=== PATIENT | male | born 1990 | race Hispanic/Latino ===

== ENCOUNTER 2017-07-03 17:28 | Emergency (ER) | payer BC ==
--- NOTE | 2017-07-03 19:04 | ER ---
Nurse's Notes [facility] Name: Juancarlos Oneal Age: 26 yrs Sex: Male : 1990 Arrival Date: 07/03/2017 Time: 17:33 Bed 14 Private MD: Diagnosis: Acute pharyngitis Presentation: 07/03 17:35 Presenting complaint: Patient states: 2 weeks ago, i have been diagnosed with hj bronchitis, finished with Rx antibiotics; now the cough is back and i have this pain on the middle of my chest; reports SOB; reports on and off fever and cold sweats;. Transition of care: patient was not received from another setting of care. Onset of symptoms was July 03, 2017. Care prior to arrival: None. 17:35 Method Of Arrival: Ambulatory 17:35 Acuity: SUNIL 3 hj Triage Assessment: 17:37 General: Appears in no apparent distress. uncomfortable, Behavior is calm, cooperative, hj appropriate for age. Pain: Complains of pain in chest. Cardiovascular: Capillary refill < 3 seconds Patient's skin is warm and dry. Historical: - Allergies: 17:37 No Known Allergies; hj - Home Meds: 17:37 None [Active]; hj - PMHx: 17:37 Asthma; hj - PSHx: 17:37 None; hj - Immunization history:: Adult Immunizations up to date. - Social history:: Smoking status: Patient/guardian denies using tobacco. Screenin:03 Abuse screen: Denies threats or abuse. Nutritional screening: No deficits noted. tw2 Tuberculosis screening: No symptoms or risk factors identified. Fall Risk None identified. Assessment: 17:37 Pain: Pain does not radiate. Pain began a week ago. hj 18:00 General: Appears in no apparent distress. obese, Behavior is calm, cooperative, tw2 appropriate for age. Pain: Complains of pain in chest Pain does not radiate. Also complains of shortness of breath, cough. Neuro: Level of Consciousness is awake, alert, obeys commands, Oriented to person, place, time, situation. Cardiovascular: Heart tones S1 S2 Capillary refill < 3 seconds Patient's skin is warm and dry. Respiratory: Reports shortness of breath cough that is non-productive, dry, Airway is patent Respiratory effort is even, unlabored, Respiratory pattern is regular, symmetrical, Breath sounds are clear bilaterally. GI: Abdomen is round non-distended, Bowel sounds present X 4 quads. GI: No signs and/or symptoms were reported involving the gastrointestinal system. GI: No signs and/or symptoms were reported involving the gastrointestinal system. : No signs and/or symptoms were reported regarding the genitourinary system. EENT: Reports nasal congestion nasal discharge family member in house has Flu A. Derm: No signs and/or symptoms reported regarding the dermatologic system. Musculoskeletal: Circulation, motion, and sensation intact. Range of motion: intact in all extremities. 19:25 Reassessment: Patient appears in no apparent distress at this time. Patient and/or kb1 family updated on plan of care and expected duration. Pain level reassessed. Patient is alert, oriented x 3, equal unlabored respirations, skin warm/dry/pink. Vital Signs: 17:38 BP 110 / 46; Pulse 85; Resp 20; Temp 97.8(TE); Pulse Ox 95% on R/A; Weight 158.76 kg; Height 5 ft. 7 in. (170.18 cm); Pain 6/10; 18:02 BP 129 / 84; Pulse 76; Resp 17; Pulse Ox 97% on R/A; tw2 18:51 BP 125 / 86; Pulse 103; Resp 20; Pulse Ox 97% on R/A; mh5 19:26 BP 128 / 92; Pulse 82; Resp 18; Pulse Ox 97% ; kb1 17:38 Body Mass Index 54.82 (158.76 kg, 170.18 cm) ED Course: 17:33 Patient arrived in ED. mr 17:36 Triage completed. hj 17:37 Arm band placed on right wrist. hj 17:37 Patient maintains SpO2 saturation greater than 95% on room air. hj 18:00 Vanesa Arguello, ANDRES is Primary Nurse. tw2 18:01 Abram Haider NP is PHCP. pm1 18:01 Angel Carrasquillo MD is Attending Physician. pm1 18:02 Bed in low position. Call light in reach. monitoring manager on. Pulse ox on. NIBP on. tw2 18:03 No provider procedures requiring assistance completed. tw2 18:23 Flu Sent. tw2 18:23 Strep Sent. tw2 19:10 Report given to ANDRES Sim. tw2 19:14 Awaiting: awaiting 15 min abx watch prior to discharge. tw2 19:15 Primary Nurse role handed off by Vanesa Arguello RN tw2 19:25 Chiquis Cheema, RN is Primary Nurse. kb1 19:54 Patient did not have IV access during this emergency room visit. kb1 Administered Medications: 19:10 Drug: Rocephin (cefTRIAXone) 1 grams Route: IM; Site: left deltoid; tw2 19:53 Follow up: Response: No adverse reaction kb1 Outcome: 19:04 Discharge ordered by MD. pm1 19:53 Discharged to home ambulatory. kb1 19:53 Condition: stable 19:53 Discharge instructions given to patient, Instructed on discharge instructions, follow up and referral plans. medication usage, Demonstrated understanding of instructions, follow-up care, medications, Prescriptions given X 2. 19:54 Patient left the ED. kb1 Signatures: Ignacia Bhatia Henry RN RN hj Abram Haider NP NEWS LIBRARY DIRECTOR pm1 Vanesa Arguello RN RN [facility] Ignacia Rosas [facility] Chiquis Cheema RN RN kb1 Corrections: (The following items were deleted from the chart) 17:40 17:38 Pulse 85bpm; Resp 20bpm; Pulse Ox 95% RA; Temp 97.8F Temporal; 158.76 kg; Height hj 5 ft. 7 in.; BMI: 54.8; Pain 6/10; hj
--- NOTE | 2017-07-03 19:04 | EDPHYS ---
Physician Documentation [facility] Name: Juancarlos Oneal Age: 26 yrs Sex: Male : 1990 Arrival Date: 07/03/2017 Time: 17:33 Bed 14 Private MD: ED Physician Angel Carrasquillo HPI: 07/03 19:15 This 26 yrs old Male presents to ER via Ambulatory with complaints of Cough, pm1 Chest Pain. 19:15 The patient or guardian reports cough, with no sputum. Onset: The symptoms/episode pm1 began/occurred 3 day(s) ago. Severity of symptoms: in the emergency department the symptoms are actually worse. Modifying factors: The symptoms are alleviated by nothing, the symptoms are aggravated by nothing. Associated signs and symptoms: Pertinent positives: chest pain, with cough, sore throat, Pertinent negatives: diarrhea, fever, rhinorrhea. 19:15 The patient has been recently seen by a physician: 2 week(s) ago, [facility]. Patient pm1 with onset of symptoms three days ago with sore throat. Historical: - Allergies: 17:37 No Known Allergies; hj - Home Meds: 17:37 None [Active]; hj - PMHx: 17:37 Asthma; hj - PSHx: 17:37 None; hj - Immunization history:: Adult Immunizations up to date. - Social history:: Smoking status: Patient/guardian denies using tobacco. ROS: 19:15 Constitutional: Negative for fever, chills, and weight loss, Eyes: Negative for injury, pm1 pain, redness, and discharge. 19:15 Neck: Negative for injury, pain, and swelling, Cardiovascular: Negative for chest pain, palpitations, and edema. 19:15 Abdomen/GI: Negative for abdominal pain, nausea, vomiting, diarrhea, and constipation, Back: Negative for injury and pain, : Negative for injury, bleeding, discharge, and swelling, MS/Extremity: Negative for injury and deformity, Skin: Negative for injury, rash, and discoloration, Neuro: Negative for headache, weakness, numbness, tingling, and seizure. 19:15 ENT: Positive for sore throat, Negative for ear pain, rhinorrhea, difficulty swallowing, difficulty handling secretions, hoarseness. 19:15 Respiratory: Positive for cough, Negative for shortness of breath, sputum production, wheezing. Exam: 19:15 Constitutional: This is a well developed, well nourished patient who is awake, alert, pm1 and in no acute distress. Head/Face: Normocephalic, atraumatic. Eyes: Pupils equal round and reactive to light, extra-ocular motions intact. Lids and lashes normal. Conjunctiva and sclera are non-icteric and not injected. Cornea within normal limits. Periorbital areas with no swelling, redness, or edema. 19:15 Neck: Trachea midline, no thyromegaly or masses palpated, and no cervical lymphadenopathy. Supple, full range of motion without nuchal rigidity, or vertebral point tenderness. No Meningismus. Chest/axilla: Normal chest wall appearance and motion. Nontender with no deformity. No lesions are appreciated. Cardiovascular: Regular rate and rhythm with a normal S1 and S2. No gallops, murmurs, or rubs. Normal PMI, no JVD. No pulse deficits. Respiratory: Lungs have equal breath sounds bilaterally, clear to auscultation and percussion. No rales, rhonchi or wheezes noted. No increased work of breathing, no retractions or nasal flaring. Abdomen/GI: Soft, non-tender, with normal bowel sounds. No distension or tympany. No guarding or rebound. No evidence of tenderness throughout. Back: No spinal tenderness. No costovertebral tenderness. Full range of motion. Skin: Warm, dry with normal turgor. Normal color with no rashes, no lesions, and no evidence of cellulitis. MS/ Extremity: Pulses equal, no cyanosis. Neurovascular intact. Full, normal range of motion. 19:15 ENT: External ear(s): are unremarkable, Ear canal(s): are normal, TM's: are normal, Nose: is normal, Mouth: is normal, Posterior pharynx: Airway: normal, no evidence of obstruction, patent, Tonsils: bilaterally enlarged, with erythema, with exudate, no ulcerations, peritonsillar mass, is not appreciated, pooling of secretions, is not appreciated. 19:15 Neuro: Orientation: is normal, Motor: is normal, moves all fours, strength is normal, strength is 5/5 in all extremities, Gait: is steady, at a normal pace, without difficulty. Vital Signs: 17:38 BP 110 / 46; Pulse 85; Resp 20; Temp 97.8(TE); Pulse Ox 95% on R/A; Weight 158.76 kg; hj Height 5 ft. 7 in. (170.18 cm); Pain 6/10; 18:02 BP 129 / 84; Pulse 76; Resp 17; Pulse Ox 97% on R/A; tw2 18:51 BP 125 / 86; Pulse 103; Resp 20; Pulse Ox 97% on R/A; mh5 19:26 BP 128 / 92; Pulse 82; Resp 18; Pulse Ox 97% ; kb1 17:38 Body Mass Index 54.82 (158.76 kg, 170.18 cm) hj MDM: 18:01 Patient medically screened. pm1 19:03 Data reviewed: vital signs. Data interpreted: Pulse oximetry: on room air is 97 %. pm1 Interpretation: normal. Counseling: I had a detailed discussion with the patient and/or guardian regarding: the historical points, exam findings, and any diagnostic results supporting the discharge/admit diagnosis, lab results, the need for outpatient follow up, to return to the emergency department if symptoms worsen or persist or if there are any questions or concerns that arise at home. 07/03 18:11 Order name: Flu; Complete Time: 19:01 pm1 07/03 18:11 Order name: Strep; Complete Time: 19:01 pm1 07/03 18:37 Order name: Throat Culture EDMS Administered Medications: 19:10 Drug: Rocephin (cefTRIAXone) 1 grams Route: IM; Site: left deltoid; tw2 19:53 Follow up: Response: No adverse reaction kb1 Disposition: 07/03/17 19:04 Discharged to Home. Impression: Acute pharyngitis. - Condition is Stable. - Discharge Instructions: Pharyngitis. - Prescriptions for Zithromax Z- Fly 250 mg Oral Tablet - take 1 tablet by ORAL route as directed for 5 days Day 1 - take two (2) tablets one time. Day 2, 3, 4 , 5 take one (1) tablet once daily.; 6 tablet. Guaifenesin AC 10- 100 mg/5 mL Oral Liquid - take 10 milliliter by ORAL route every 4 hours As needed; 240 milliliter. - Medication Reconciliation Form, Thank You Letter, Antibiotic Education, Work release form form. - Follow up: Emergency Department; When: As needed; Reason: Worsening of condition. Follow up: Private Physician; When: 2 - 3 days; Reason: Recheck today's complaints, Continuance of care, Re-evaluation by your physician. - Problem is new. - Symptoms have improved. Addendum: 07/06/2017 07:29 Co-signature as Attending Physician, Angel Carrasquillo MD. g s Signatures: Dispatcher [employer] EDMS Jarrod Pimentel, RN RN hj Abarm Haider NP STATUE CARVER pm1 Vanesa Arguello RN RN tw2 Angel Carrasquillo MD MD Chiquis Cheema, RN RN kb1
[2017-07-03] MEDS ORDERED: CEFTRIAXONE 1000 MG/VIAL ONE (19:27)
[2017-07-03 19:59] VITALS: TEMP 97.8
[2017-07-03 20:00] VITALS: O2SAT 97
[2017-07-03 20:02] VITALS: BP 128/92
== END 2017-07-03 19:54 | disposition home or self-care (01) ==
LOC: ER 17:28
DX: J02.9 Acute pharyngitis, unspecified (principal)
CPT/HCPCS: 87070; 87081; 87804; 96372; 99285

== ENCOUNTER 2018-01-09 09:31 | Emergency (ER) | payer BC ==
--- NOTE | 2018-01-09 10:33 | ER ---
Nurse's Notes [facility] Name: Juancarlos Oneal Age: 27 yrs Sex: Male : 1990 Arrival Date: 01/09/2018 Time: 09:33 Bed 12 Private MD: Richard Valencia E Diagnosis: Insect bite (nonvenomous) of forearm Presentation: 01/09 09:42 Presenting complaint: Patient states: redness to R forearm x 2 days. Pt believes it may ss be a spider bite. Transition of care: patient was not received from another setting of care. Onset of symptoms was January 07, 2018. Risk Assessment: Do you want to hurt yourself or someone else? Patient reports no desire to harm self or others. Initial Sepsis Screen: Does the patient meet any 2 criteria? No. Patient's initial sepsis screen is negative. Does the patient have a suspected source of infection? No. Patient's initial sepsis screen is negative. Care prior to arrival: None. 09:42 Method Of Arrival: Ambulatory ss 09:42 Acuity: SUNIL 5 ss Historical: - Allergies: 09:43 No Known Allergies; ss - Home Meds: 09:43 None [Active]; ss - PMHx: 09:43 Asthma; ss - PSHx: 09:43 None; ss - Immunization history:: Adult Immunizations unknown. - Social history:: Smoking status: Patient/guardian denies using tobacco. - Ebola Screening: : Patient denies exposure to infectious person Patient denies travel to an Ebola-affected area in the 21 days before illness onset. - Family history:: not pertinent. Screenin:57 Abuse screen: Denies threats or abuse. Denies injuries from another. Nutritional ss screening: No deficits noted. Tuberculosis screening: Never had TB. Fall Risk None identified. Assessment: 09:57 General: Appears in no apparent distress. comfortable, Behavior is calm, cooperative, ss Denies fever, feeling ill, fatigue, chills. Pain: Complains of pain in dorsal aspect of right forearm Pain currently is 0 out of 10 on a pain scale. Quality of pain is described as tender, Pain began 2-3 days ago. Neuro: Level of Consciousness is awake, alert, obeys commands, Oriented to person, place, time, situation, Speech is normal, Facial symmetry appears normal. Cardiovascular: Heart tones S1 S2 present Capillary refill < 3 seconds is brisk in bilateral fingers Patient's skin is warm and dry. Pulses are palpable in right radial artery and left radial artery. Respiratory: Airway is patent Trachea midline Respiratory effort is even, unlabored, Respiratory pattern is regular, symmetrical. GI: Patient currently denies abdominal pain, diarrhea, nausea, vomiting. : No signs and/or symptoms were reported regarding the genitourinary system. EENT: Nares are clear Oral mucosa is moist. Throat is clear. Derm: Skin is healthy with good turgor, Skin is pink, warm \T\ dry. normal, Skin temperature is warm Abscess located on dorsal aspect of right forearm is quarter sized, redness, warm to touch. Musculoskeletal: Circulation, motion, and sensation intact. Capillary refill < 3 seconds, is brisk, in bilateral fingers. Range of motion: intact in all extremities. 10:40 Reassessment: Patient appears in no apparent distress at this time. Patient and/or ss family updated on plan of care and expected duration. Pain level reassessed. Patient is alert, oriented x 3, equal unlabored respirations, skin warm/dry/pink. Vital Signs: 09:43 BP 153 / 92; Pulse 83; Resp 15; Temp 97.2(TE); Pulse Ox 97% on R/A; Weight 136.08 kg; ss Height 5 ft. 7 in. (170.18 cm); Pain 0/10; 09:43 Body Mass Index 46.99 (136.08 kg, 170.18 cm) ED Course: 09:33 Patient arrived in ED. rg4 09:33 Richard Valencia MD is Private Physician. [facility] 09:43 Triage completed. 09:43 Arm band placed on right wrist. 09:52 Ramón Silverio MD is Attending Physician. dayanna 09:57 Perri Frey RN is Primary Nurse. ss 09:57 Patient has correct armband on for positive identification. Bed in low position. Call ss light in reach. 10:32 Richard Valencia MD is Referral Physician. dayanna 10:40 No provider procedures requiring assistance completed. Patient did not have IV access ss during this emergency room visit. Administered Medications: 10:34 Drug: Bactrim (160 mg-800 mg (DS) 1 tablet Route: PO; ss 10:40 Follow up: Response: No adverse reaction; Medication administered at discharge. ss 10:40 Drug: Bactroban Ointment 2 % 1 application Route: Topical; Site: affected area; Outcome: 10:32 Discharge ordered by . dayanna 10:40 Discharged to home ambulatory. 10:40 Condition: good 10:40 Discharge instructions given to patient, Instructed on discharge instructions, follow up and referral plans. medication usage, Demonstrated understanding of instructions, follow-up care, medications, Prescriptions given X 3. 10:41 Patient left the ED. Signatures: Ramón Silverio MD MD cha Smirch, Shelby, RN RN Vidhya Marques rg4
--- NOTE | 2018-01-09 10:33 | EDPHYS ---
Physician Documentation [facility] Name: Juancarlos Oneal Age: 27 yrs Sex: Male : 1990 Arrival Date: 01/09/2018 Time: 09:33 Bed 12 Private MD: Richard Valencia E ED Physician Ramón Silverio HPI: 01/09 10:30 This 27 yrs old Male presents to ER via Ambulatory with complaints of Insect dayanna Bite. 10:30 The patient or guardian complains of an abrasion, pain, swelling. The complaints affect dayanna the palmar aspect of right forearm. Context: The problem was sustained at home. Onset: The symptoms/episode began/occurred 2 day(s) ago. Treatment prior to arrival includes: no previous treatment. Associated signs and symptoms: The patient has no apparent associated signs or symptoms. The patient has not experienced similar symptoms in the past. Historical: - Allergies: 09:43 No Known Allergies; ss - Home Meds: :43 None [Active]; ss - PMHx: :43 Asthma; ss - PSHx: :43 None; ss - Immunization history:: Adult Immunizations unknown. - Social history:: Smoking status: Patient/guardian denies using tobacco. - Ebola Screening: : Patient denies exposure to infectious person Patient denies travel to an Ebola-affected area in the 21 days before illness onset. - Family history:: not pertinent. ROS: 10:30 Constitutional: Negative for fever, chills, and weight loss, Eyes: Negative for injury, dayanna pain, redness, and discharge, ENT: Negative for injury, pain, and discharge, Neck: Negative for injury, pain, and swelling, Cardiovascular: Negative for chest pain, palpitations, and edema, Respiratory: Negative for shortness of breath, cough, wheezing, and pleuritic chest pain, Abdomen/GI: Negative for abdominal pain, nausea, vomiting, diarrhea, and constipation, Back: Negative for injury and pain, : Negative for injury, bleeding, discharge, and swelling, Skin: Negative for injury, rash, and discoloration, Neuro: Negative for headache, weakness, numbness, tingling, and seizure, Psych: Negative for depression, anxiety, suicide ideation, homicidal ideation, and hallucinations, Allergy/Immunology: Negative for hives, rash, and allergies, Endocrine: Negative for neck swelling, polydipsia, polyuria, polyphagia, and marked weight changes, Hematologic/Lymphatic: Negative for swollen nodes, abnormal bleeding, and unusual bruising. 10:30 MS/extremity: Positive for pain, swelling, tenderness, of the palmar aspect of right forearm. Exam: 10:30 Constitutional: This is a well developed, well nourished patient who is awake, alert, dayanna and in no acute distress. Head/Face: Normocephalic, atraumatic. Eyes: Pupils equal round and reactive to light, extra-ocular motions intact. Lids and lashes normal. Conjunctiva and sclera are non-icteric and not injected. Cornea within normal limits. Periorbital areas with no swelling, redness, or edema. ENT: Nares patent. No nasal discharge, no septal abnormalities noted. Tympanic membranes are normal and external auditory canals are clear. Oropharynx with no redness, swelling, or masses, exudates, or evidence of obstruction, uvula midline. Mucous membranes moist. Neck: Trachea midline, no thyromegaly or masses palpated, and no cervical lymphadenopathy. Supple, full range of motion without nuchal rigidity, or vertebral point tenderness. No Meningismus. Chest/axilla: Normal chest wall appearance and motion. Nontender with no deformity. No lesions are appreciated. Cardiovascular: Regular rate and rhythm with a normal S1 and S2. No gallops, murmurs, or rubs. Normal PMI, no JVD. No pulse deficits. Respiratory: Lungs have equal breath sounds bilaterally, clear to auscultation and percussion. No rales, rhonchi or wheezes noted. No increased work of breathing, no retractions or nasal flaring. Abdomen/GI: Soft, non-tender, with normal bowel sounds. No distension or tympany. No guarding or rebound. No evidence of tenderness throughout. Back: No spinal tenderness. No costovertebral tenderness. Full range of motion. Neuro: Awake and alert, GCS 15, oriented to person, place, time, and situation. Cranial nerves II-XII grossly intact. Motor strength 5/5 in all extremities. Sensory grossly intact. Cerebellar exam normal. Normal gait. Psych: Awake, alert, with orientation to person, place and time. Behavior, mood, and affect are within normal limits. 10:30 Skin: Appearance: Color: normal in color, Temperature: warm, Moisture: normal moisture, petechiae, not noted, ecchymosis, not noted, injury, abrasion(s), bite(s), superficial. Vital Signs: 09:43 BP 153 / 92; Pulse 83; Resp 15; Temp 97.2(TE); Pulse Ox 97% on R/A; Weight 136.08 kg; ss Height 5 ft. 7 in. (170.18 cm); Pain 0/10; 09:43 Body Mass Index 46.99 (136.08 kg, 170.18 cm) MDM: 09:52 Patient medically screened. [facility] 10:32 Data reviewed: vital signs, nurses notes. [facility] Administered Medications: 10:34 Drug: Bactrim (160 mg-800 mg (DS) 1 tablet Route: PO; 10:40 Follow up: Response: No adverse reaction; Medication administered at discharge. 10:40 Drug: Bactroban Ointment 2 % 1 application Route: Topical; Site: affected area; Disposition: 01/09/18 10:32 Discharged to Home. Impression: Insect bite (nonvenomous) of forearm. - Condition is Stable. - Discharge Instructions: Insect Bite, Gmso-[id number]-Fcit, Insect Bite. - Prescriptions for Bactroban 2 % Topical Ointment - Apply to affected area 1 application by TOPICAL route every 12 hours; 30 gram. Claritin 10 mg Oral Tablet - take 1 tablet by ORAL route once daily As needed; 20 tablet. Bactrim DS 800- 160 mg Oral Tablet - take 1 tablet by ORAL route every 12 hours for 7 days; 14 tablet. - Medication Reconciliation Form, Thank You Letter, Antibiotic Education, Prescription Opioid Use form. - Follow up: Richard Valencia MD; When: 2 - 3 days; Reason: Recheck today's complaints, Continuance of care, Re-evaluation by your physician. Signatures: Ramón Silverio MD MD cha Smirch, Shelby RN RN ss Corrections: (The following items were deleted from the chart) 10:41 10:32 01/09/2018 10:32 Discharged to Home. Impression: Insect bite (nonvenomous) of ss forearm. Condition is Stable. Forms are Medication Reconciliation Form, Thank You Letter, Antibiotic Education, Prescription Opioid Use. Follow up: Richard Valencia; When: 2 - 3 days; Reason: Recheck today's complaints, Continuance of care, Re-evaluation by your physician. dayanna
[2018-01-09] MEDS ORDERED: SMZ./TMP. 800/160 MG TABLET ONE (10:43)
[2018-01-09 10:47] VITALS: BP 153/92; TEMP 97.2; O2SAT 97
== END 2018-01-09 10:41 | disposition home or self-care (01) ==
LOC: ER 09:31
DX: S50.861A Insect bite (nonvenomous) of right forearm, initial encounter (principal); W57.XXXA Bitten or stung by nonvenomous insect and other nonvenomous arthropods, initial encounter; Y93.9 Activity, unspecified; Y92.009 Unspecified place in unspecified non-institutional (private) residence as the place of occurrence of the external cause
CPT/HCPCS: 99283

== ENCOUNTER 2020-04-23 11:20 | Emergency (ER) | payer BC, SELFPAY ==
--- OUTSIDE RECORDS SUMMARY | 2020-04-23 11:34 | XMS REPORT | Summary of Care ---
:1990 Author Organization [facility] Address [address] [place] [address] Care Team Providers Name Role Phone Richard Valencia Primary Care Provider Encounter Details Date Type Department Care Team Description 02/07/2020 Letter (Out) ACCESS [facility]ENTER Maryjane Zamora RN [address] [place] [phone] Allergies No Known Allergiesdocumented as of this encounter (statuses as of 02/07/2020) Medications Medication Sig Dispensed Refills Start Date End Date Status albuterol (VENTOLIN) 90 Inhale 2 Puffs 8.5 g 0 02/10/2015 Active mcg/actuation inhaler every 4 (four) hours as needed for Wheezing or Shortness of Breath. albuterol 90 Inhale 2 Puffs 8.5 g 0 06/26/2017 A ctive mcg/actuation inhaler every 4 (four) hours as needed for Wheezing or Shortness of Breath. azithromycin 250 mg Take 1 tablet by 6 tablet 0 06/26/2017 Active tablet mouth SEE-INSTRUCTIONS. Take 500 mg day 1, then 250 mg days 2 to 5. codeine-guaifenesin Take 10 mL by 240 mL 0 06/26/2017 Active 10-100 mg/5 mL solution mouth every 6 (six) hours as needed for Cough. dicyclomine 20 mg Take 1 tablet by 20 tablet 0 08/22/2019 Active tabletIndications: mouth every 6 Generalized abdominal (six) hours as pain needed for Abdominal pain. ondansetron (ZOFRAN) 4 Take 1 tablet by 12 tablet 0 08/22/2019 Active mg tabletIndications: mouth every 8 Non-intractable (eight) hours as vomiting with nausea, needed for Nausea unspecified vomiting and Vomiting type (N/V). albuterol 90 Inhale 2 Puffs 8.5 g 0 10/01/2019 A ctive mcg/actuation every 4 (four) inhalerIndications: hours as needed Suspected COVID-19 for Wheezing or virus infection Shortness of Breath. dextromethorphan-guaife Take 10 mL by 1 Bottle 0 10/01/2019 Active nesin 15-100 mg/5 mL mouth every 6 syrupIndications: (six) hours as Suspected COVID-19 needed for Cough. virus infection codeine-guaifenesin Take 5 mL by 118 mL 0 10/01/2019 Active 10-100 mg/5 mL mouth every 6 solutionIndications: (six) hours as Suspected COVID-19 needed for Cough virus infection (bedtime). ondansetron 4 mg Take 1 tablet by 12 tablet 0 02/06/2020 Active disintegrating mouth every 8 tabletIndications: (eight) hours as Nausea needed for Nausea and Vomiting (N/V). documented as of this encounter (statuses as of 02/07/2020) Active Problems No known active problemsdocumented as of this encounter (statuses as of 02/07/2020) Social History Tobacco Use Types Packs/Day Years Used Date Never Assessed Sex Assigned at Date Recorded Not on file COVID-19 Exposure Response Date Recorded In the last month, have you been in contact with No / Unsure 02/06/2020 5:19 PM CDT someone who was confirmed or suspected to have Coronavirus / COVID-19? documented as of this encounter Last Filed Vital Signs Not on filedocumented in this encounter Plan of Treatment Health Maintenance Due Date Last Done Comments VARICELLA VACCINES (1 of 2 - 1989 2-dose childhood series) Depression Screening 2000 DTaP,Tdap,and Td Vaccines (1 - 11/21/2007 Tdap) INFLUENZA VACCINE (#1) 2019 PNEUMOCOCCAL 0-64 YEARS COMBINED Aged Out No longer eligible based on SERIES patient's age to complete this topic documented as of this encounter Results Not on filedocumented in this encounter Additional Health Concerns Infection Onset Date Last Indicated Resolved Time COVID-19 Rule Out 02/06/2020 02/06/2020 02/07/2020 4: 23 PM CDT documented as of this encounter
--- OUTSIDE RECORDS SUMMARY | 2020-04-23 11:34 | XMS REPORT | Continuity of Care Document ---
:1990 Author Organization [facility] t Address [address] [place] [address] Care Team Providers Name Role Phone Sera CAMPOS Attending Clinician Unavailable Chanel QUEZADA, F Attending Clinician Ivan QUEZADA, B Attending Clinician Doctor Unassigned, Name Attending Clinician Unavailable Jam QUEZADA Attending Clinician Juan HERNÁNDEZ S Attending Clinician Problems This patient has no known problems. Allergies, Adverse Reactions, Alerts This patient has no known allergies or adverse reactions. Medications This patient has no known medications. Procedures This patient has no known procedures. Encounters Start End Encounter Admission Attending Care Care Encounter Source Date/Time Date/Time Type Type Clinicians Facility Department ID 2020-02-07 2020-02-07 Letter Maryjane Zamora [id number] 00:00:00 00:00:00 (Out) ALBINA [id number] [facility] [id number] 2020-02-06 2020-02-06 Emergency SANJIV Buchanan [id number] 17:25:00 21:45:00 Maya Michlele [id number] [place] [id number] [place] [id number] 2019-10-01 2019-10-01 Emergency SANJIV Love [id number] 12:45:55 13:57:00 Ose[place] Michelle [id number] [place] [id number] [place] [id number] 2019-10-01 2019-10-01 Orders Doctor ADRIANA [id number] 00:00:00 00:00:00 Only Unassigned, ALBINA [id number] [place] [facility] [id number] 2019-08-22 2019-08-22 Emergency LakishaBerry richard [facility] [id number]. [id number] 16:59:17 21:36:00 Nguyen Martinez [id number] Nguyen Martinez [id number] [place] [id number] Results This patient has no known results.
--- OUTSIDE RECORDS SUMMARY | 2020-04-23 11:34 | XMS REPORT | Summary of Care ---
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 [address] [place] [address] Reason for Visit Reason Comments Diarrhea x 2 days Chills Auth/Cert Status Reason Specialty Diagnoses / Referred By Referred To Procedures Contact Contact Emergency Medicine [facility] Em ergency Dept [address] [place] [address] Fax: Encounter Details Date Type Department Care Team Description 02/06/2020 Emergency ADC-Emergency [place], [place] Diarrhea, unspecified type (Primary Dx); Department F, 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 Epigastric pain; [address] [place] [address] [address] [facility]; [address] [place] [address] [place] [phone] Allergies No Known Allergiesdocumented as of this encounter (statuses as of 02/06/2020) Medications Medication Sig Dispensed Refills Start Date [...] as of this encounter (statuses as of 02/06/2020) Active Problems No known active problemsdocumented as of this encounter (statuses as of 02/06/2020) Social History Tobacco Use Types Packs/Day Years Used Date Never Assessed Sex Assigned at Date Recorded Not on file COVID-19 Exposure Response Date Recorded In the last month, have you been in contact with No / Unsure 02/06/2020 5:19 PM CDT someone who was confirmed or suspected to have Coronavirus / COVID-19? documented as of this encounter Last Filed Vital Signs Vital Sign Reading Time Taken Comments Blood Pressure 147/93 02/06/2020 8:00 PM CDT Pulse 75 02/06/2020 8:00 PM CDT Temperature 37.2 C (99 F) 02/06/2020 5:21 PM CDT Respiratory Rate 18 02/06/2020 8:00 PM CDT Oxygen Saturation 96% 02/06/2020 8:00 PM CDT Inhaled Oxygen Concentration - - Weight 176 kg (388 lb) 02/06/2020 5:23 PM CDT Height 170.2 cm (5' 7") 02/06/2020 5:23 PM CDT Body Mass Index 60.77 02/06/2020 5:23 PM CDT documented in this encounter Discharge Instructions Maya Miller FNP - 02/06/2020 You were seen today for Chief Complaint Patient presents with Diarrhea x 2 days Chills Your ER diagnosis was ICD-10-CM ICD-9-CM 1. Diarrhea, unspecified type R19.7 787.91 2. Epigastric pain R10.13 789.06 3. Gastroenteritis K52.9 558.9 NO LIFE-THREATENING FINDINGS ON TODAY'S EXAM. YOUR PRESCRIPTIONS : Medication List ASK your doctor about these medications * albuterol 90 mcg/actuation inhaler Commonly known as: VENTOLIN Inhale 2 Puffs every 4 (four) hours as needed for Wheezing or Shortness of Breath. * albuterol 90 mcg/actuation inhaler Commonly known as: VENTOLIN Inhale 2 Puffs every 4 (four) hours as needed for Wheezing or Shortness of Breath. * albuterol 90 mcg/actuation inhaler Commonly known as: VENTOLIN Inhale 2 Puffs every 4 (four) hours as needed for Wheezing or Shortness of Breath. azithromycin 250 mg tablet Commonly known as: ZITHROMAX Take 1 tablet by mouth SEE-INSTRUCTIONS. Take 500 mg day 1, then 250 mg days 2 to 5. * codeine-guaifenesin 10-100 mg/5 mL solution Commonly known as: ROBITUSSIN AC Take 10 mL by mouth every 6 (six) hours as needed for Cough. * codeine-guaifenesin 10-100 mg/5 mL solution Commonly known as: ROBITUSSIN AC Take 5 mL by mouth every 6 (six) hours as needed for Cough (bedtime). dextromethorphan-guaifenesin 15-100 mg/5 mL syrup Commonly known as: ROBITUSSIN-DM Take 10 mL by mouth every 6 (six) hours as needed for Cough. dicyclomine 20 mg tablet Commonly known as: BENTYL Take 1 tablet by mouth every 6 (six) hours as needed for Abdominal pain. ondansetron 4 mg tablet Commonly known as: Zofran Take 1 tablet by mouth every 8 (eight) hours as needed for Nausea and Vomiting (N/V). * This list has 5 medication(s) that are the same as other medications prescribed for you. Read thedirections carefully, and ask your doctor or other care provider to review them with you. ER precautions and follow up : 1. Return to ER if your symptoms should worsen or fail to improve within 72 hours. 2. The care provided in the emergency room was for acute problems only. 3. You should follow up with your primary care provider within 72 hours. 4. Fill and take all your medications as prescribed. 5. Make sure you are staying adequately hydrated. Busque attencion immediatamente si usted tiene los sitomas sigue, vuelve peor o si hay sitomas nuevas o para cualquiera preoccupacion incluyendo dolor del pecho, falta aire, se siente debile, mas fievre, mas dolor, nausea, vomitando, sangrando que no es normal, confusion, baja or pierdas conciencia. FOLLOW-UP RECOMMENDATIONS: RECOMMEND FOLLOW-UP WITH A PRIMARY CARE PROVIDER OR SPECIALIST IN 2-5 DAYS, ESPECIALLY IF NO IMPROVEMENT IN SYMPTOMS. MAY FOLLOW-UP WITH A PROVIDER OF YOUR CHOICE, SUCH : 1. A PHYSICIAN OF YOUR CHOICE 2. [facility], . LOCATIONS IN [facility] 3. [facility], [address], [place]; [phone] OR, IF YOU WISH TO FOLLOW-UP WITHIN THE [facility], MAY TRY THESE OPTIONS (CLINIC APPOINTMENTS AVAILABLE ON [id number] BASIS): 1. SCHEDULE AN APPOINTMENT ONLINE AT WWW.[facility] 2. OR CALL THE [facility] ACCESS CENTER AT OR 3. OR CALL YOUR [facility] PHYSICIAN'S OFFICE DIRECTLY IF YOU ARE ALREADY AN ESTABLISHED [facility] PATIENT. AttachmentsThe following attachments cannot be sent through Care Everywhere. Gastroenteritis, Noninfectious (Nepalese)documented in this encounter ED Notes Denise Tamez RN - 02/06/2020 5:19 PM CDTCC:Pt presents to ER with complaints of diarrhea and chills x 2 days. Denies fever, nausea, vomiting. PMHx: Asthma PSH: Denies MEDS: Denies Tetanus: UTD Awake, alert, oriented, resp reg unlabored, skin warm , color appropriate for race, moves all ext without difficulty, amb without assist. Appears in no distress documented in this encounter Miscellaneous Notes ED Nurse Note - Betzaida Rosas RN - 02/06/2020 9:41 PM CDTPt given printed and verbal discharge instructions regarding gastroenteritis, encouraged hydration, Prescriptions provided for Zofran. Pt verbalized understanding of instructions, pt awake alert oriented, resp reg unlabored, skin w/d, color appropriate for race, moves all ext well,pt encouraged to follow up with pcp Advised to seek medical attention for new/prolonged/worsening of symptoms, Symptoms were addressed. No adverse reaction to meds given in ER noted upon discharge PIV d'cd, dressing to site, catheter in tact. Awake, alert oriented, resp reg unlabored, skin w/d, pt leaving amb with steady gait, in no apparent distress, D Nurse Note - Betzaida Rosas RN - 02/06/2020 9:21 PM CDTPatient sitting at bedside at this time. Patient reports that his pain is improving. Updated patienton plan of care. IVF infusing. No S/S of distress. Will continue to monitor. documented in this encounter Plan of Treatment Name Type Priority Associated Diagnoses Date/Ti me CT ABDOMEN PELVIS W IMAGING STAT Diarrhea, unspecified 02/06/2020 8:20 PM CONTRAST type CDT Epigastric pain CORONAVIRUS COVID-19 LAB STAT Diarrhea, unspecifie d 02/06/2020 8:42 PM TESTING type CDT Epigastric pain Name Type Priority Associated Diagnoses Order S chedule CORONAVIRUS COVID-19 LAB Routine Diarrhea, unspecifie d ONCE for 1 Occurrences TESTING type starting 02/06/2020 Epigastric pain until 2019 Health Maintenance Due Date Last Done Comments VARICELLA VACCINES (1 of 2 - 1989 2-dose childhood series) Depression Screening 2000 DTaP,Tdap,and Td Vaccines (1 - 11/21/2007 Tdap) INFLUENZA VACCINE (#1) 2019 PNEUMOCOCCAL 0-64 YEARS COMBINED Aged Out No longer eligible based on SERIES patient's age to complete this topic documented as of this encounter Procedures Procedure Name Priority Date/Time Associated Diagnosis Comme nts CT ABDOMEN PELVIS W STAT 02/06/2020 8:20 PM Diarrhea, unsp ecified CONTRAST CDT type Epigastric pain Procedure Note - [facility], Radia nt Results Inft User - 02/06/2020 9:13 PM CDT EXAM: CT ABDOMEN AND PELVIS WITH CONTRAST HISTORY: 29-year-old male wi th acute abdominal pain, nausea, and fever. COMPARISON: CT abdomen and p shahab on 08/22/2019 TECHNIQUE AND FINDINGS: Cont iguous axial imaging from the level of the lung bases through the pubic symp hysis was performed after the uncomplicated administration of 120 cc of intravenous Omnipaque contrast. Coronal and sagittal reconstructions wer e obtained. Auto mA and/or iterative reconstruction were used to reduce radiation dose. FINDINGS: LOWER THORAX: The lung bases are clear. No cardiomegaly. LIVER: No focal hepatic lesi ons. Normal contour. The liver is enlarged and measures 20 cm. It is diffus patt hypoattenuating, consistent with fatty infiltration with focal spar ing around gallbladder fossa. GALLBLADDER AND BILIARY TREE : No biliary ductal dilation. No gallbladder wall thickening. SPLEEN: No splenomegaly. PANCREAS: No ductal dilation or masses. ADRENAL GLANDS: No adrenal n odules. KIDNEYS: No hydronephrosis, stones, or masses. PERITONEUM AND RETROPERITONE UM: No free air or fluid. LYMPH NODES: No lymphadenopa thy. GI TRACT: No dilation or wal l thickening. PELVIS/BLADDER: Unremarkable . VESSELS: Unremarkable. BONES AND SOFT TISSUES: No s uspicious lytic or sclerotic bony lesions. IMPRESSION 1. No acute findings in the abdomen or pelvis. 2. Hepatomegaly with diffus e fatty infiltration. No focal hepatic lesion. Preliminary Report Dictated by Resident: Amina Bailey URINALYSIS STAT 02/06/2020 7:05 PM Diarrhea, Results for this CDT unspecified type procedure a re in the results section. CBC WITH DIFF STAT 02/06/2020 7:05 PM Diarrhea, Results for this CDT unspecified type procedure a re in the results section. COMP. METABOLIC STAT 02/06/2020 7:05 PM Diarrhea, Resul ts for this PANEL ([id number]) CDT unspecified type procedure are in the results section. LIPASE STAT 02/06/2020 7:05 PM Diarrhea, Results for this CDT unspecified type procedure a re in the results section. NOTICE OF PRIVACY Routine 02/06/2020 4:52 PM PRACTICES CDT CONSENT/REFUSAL FOR Routine 02/06/2020 4:51 PM DIAGNOSIS AND CDT TREATMENT documented in this encounter Results Urinalysis (02/06/2020 7:05 PM CDT) Pathologist Sig nature APPEARANCE Clear Clear [facility] COLOR Yellow Yellow [facility] PH 6.0 4.8 - 8.0 [facility] SP GRAVITY 1.019 1.003 - 1.030 [facility] GLU U QUAL Normal Normal [facility] BLOOD Negative Negative [facility] KETONES Negative Negative [facility] PROTEIN Negative Negative [facility] UROBILIN Normal Normal [facility] BILIRUBIN Negative Negative [facility] NITRITE Negative Negative [facility] LEUK DAVID Negative Negative [facility] RBC/HPF 3 0 - 3 HPF [facility] WBC/HPF <1 0 - 5 HPF [facility] BACTERIA Few (A) Negative [facility] MUCOUS Slight (A) Negative LPF [facility] SQ EPITH <1 HPF [facility] Specimen Urine - URINE, CLEAN CATCH Performing Organization Address City/[facility]/Zipcode Phone Number [facility] CLIA: [id number] [place] [address] [address] Lipase Serum (02/06/2020 7:05 PM CDT) Pathologist Sig nature LIPASE 143 0 - 220 U/L [facility] Specimen Blood - VENOUS Performing Organization Address City/[facility]/Zipcode Phone Number [facility] CLIA: [id number] [place] [address] LABORATORY [address] [facility] COMP. METABOLIC PANEL ([id number]) (02/06/2020 7:05 PM CDT) NA 135 135 - 145 [facility] mmol/L [facility] K 4.3 3.5 - 5.0 [facility] mmol/L [facility] CL 101 98 - 108 mmol/L [facility] CO2 TOTAL 28 23 - 31 mmol/L [facility] AGAP 6 2 - 16 [facility] BUN 11 7 - 23 mg/dL [facility] GLUCOSE 94 70 - 110 mg/dL [facility] CREATININE 0.56 (L) 0.60 - 1.25 [facility] mg/dL [facility] TOTAL BILI 0.6 0.1 - 1.1 mg/dL [facility] CALCIUM 9.3 8.6 - 10.6 [facility] mg/dL [facility] T PROTEIN 7.7 6.3 - 8.2 g/dL [facility] ALBUMIN 3.9 3.5 - 5.0 g/dL [facility] ALK PHOS 81 34 - 122 U/L [facility] ALTv 44 5 - 50 U/L [facility] AST(SGOT) 47 (H) 13 - 40 U/L [facility] eGFR Calculation 170.2 mL/min/1.73m2 [facility] (Non[facility] LABORATORY Taiwanese) eGFR Calculation 206.2 mL/min/1.73m2 [facility] () [facility] Specimen Blood - VENOUS Narrative Performed At Association of Glomerular Filtration Rate (GFR) [facility] and Staging of Kidney Disease* + + +- + | GFR (mL/min/1.73 m2) | With Kidney Damage | Without Kidney Damage + + +- + | >90 | Stage one | Normal + + +- + | 60-89 | Stage two | Decreased GFR + + +- + | 30-59 | Stage three | Stage three + + +- + | 15-29 | Stage four | Stage four + + +- + | <15 (or dialysis) | Stage five | Stage five + + +- + *Each stage assumes the associated GFR level has been in effect for at least three months. Stages 1 to 5, with or without kidney disease, indicate chronic kidney disease. Notes: Determination of stages one and two (with eGFR >59mL/min/1.73 m2) requires estimation of kidney damage for at least three months as defined by structural or functional abnormalities of the kidney, manifested by either: Pathological abnormalities or Markers of kidney damage (including abnormalities in the composition of the blood or urine or abnormalities in imaging tests). Performing Organization Address City/State/Zipcode Phone Number [facility] CLIA: [id number] [place] [address] CBC with Differential (02/06/2020 7:05 PM CDT) WBC 11.29 (H) 4.20 - 10.70 [facility] 10*3/L [facility] RBC 4.93 4.26 - 5.52 [facility] 10*6/L [facility] HGB 14.9 12.2 - 16.4 [facility] g/dL [facility] HCT 45.6 38.4 - 49.3 % [facility] MCV 92.5 81.7 - 95.6 [facility] LABORATORY MCH 30.2 26.1 - 32.7 [facility] LABORATORY MCHC 32.7 31.2 - 35.0 [facility] g/dL [facility] RDW-SD 44.4 38.5 - 51.6 [facility] LABORATORY RDW-CV 13.1 12.1 - 15.4 % [facility] PLT 297 150 - 328 [facility] 10*3/L [facility] LABORATORY MPV 10.5 9.8 - 13.0 [facility] LABORATORY IPF % 2.9Comment: Platelet 1.2 - 10.7 % [facility] count measured by HOSPITAL fluorescence method. LABORATORY NRBC/100 WBC 0.0 0.0 - 10.0 [facility] /100 WBCs [facility] NRBC x10^3 <0.01 10*3/L [facility] GRAN MAT (NEUT) % 67.3 % [facility] IMM GRAN % 0.60 % [facility] LYMPH % 18.4 % [facility] MONO % 11.0 % [facility] EOS % 1.8 % [facility] BASO % 0.9 % [facility] GRAN MAT 7.60 (H) 1.99 - 6.95 [facility] x10^3(ANC) 10*3/uL [facility] IMM GRAN x10^3 0.07 (H) 0.00 - 0.06 [facility] 10*3/uL [facility] LYMPH x10^3 2.08 1.09 - 3.23 [facility] 10*3/uL [facility] MONO x10^3 1.24 (H) 0.36 - 1.02 [facility] 10*3/uL [facility] EOS x10^3 0.20 0.06 - 0.53 [facility] 10*3/uL [facility] BASO x10^3 0.10 (H) 0.01 - 0.09 [facility] 10*3/uL [facility] Specimen Blood - VENOUS Performing Organization Address City/State/Zipcode Phone Number [facility] CLIA: [id number] [place] [address] [address] documented in this encounter Visit Diagnoses Diagnosis Diarrhea, unspecified type - Primary Epigastric pain Abdominal pain, epigastric Gastroenteritis Other and unspecified noninfectious anurag roenteritis and colitis Nausea Nausea alone documented in this encounter Administered Medications Medication Order MAR Action Action Date Dose Rate Site iohexol (OMNIPAQUE 350 BULK-150 Given 02/06/2020 8:30 PM CDT 12 0 mL mL) injection 120 mL 120 mL, Intravenous, ONCE, 1 dose, Megan 02/06/20 at 2030, Routine NaCl 0.9% (NS) bolus infusion New Bag 02/06/2020 7:07 PM CDT 1,000 mL 999 mL/hr 1,000 mL at 999 mL/hr, 1,000 mL, IV Infusion, ONCE, 1 dose, Megan 02/06/20 at 1830, BRANDI documented in this encounter Additional Health Concerns Infection Onset Date Last Indicated Resolved Time COVID-19 Rule Out 02/06/2020 02/06/2020 documented as of this encounter
[2020-04-23 12:41] LABS: Absolute Lymphocytes (CBC) 2.5 K/uL (0.7-4.9); Basophils % 0.9 % (0-1.3); Hematocrit 46.2 % (39.6-49.0); Lymphocytes % 18.6 % (15.3-44.8); MPV 8.5 fL (7.6-11.3); RBC Red Blood Cell Count 5.13 M/uL (4.33-5.43)
[2020-04-23] MEDS ORDERED: NA CHLORIDE 0.9% 1,000 ML ONE (12:54)
[2020-04-23 13:04] LABS: ALT/SGPT 40 U/L (12-78); AST/SGOT 19 U/L (15-37); Albumin 3.7 g/dL (3.4-5.0); Alkaline Phosphatase 98 U/L (45-117); BUN Blood Urea Nitrogen 13 mg/dL (7-18); Bicarbonate 29 mmol/L (21-32); Bilirubin Direct < 0.1 mg/dL (0-0.2); Bilirubin Total 0.4 mg/dL (0.2-1.0); Glucose Level 78 mg/dL (74-106); Lipase 216 U/L (73-393); Potassium 3.9 mmol/L (3.5-5.1); Sodium Level 138 mmol/L (136-145)
[2020-04-23 13:39] LABS: SARS-COV-2 RT PCR NEGATIVE (NEGATIVE)
--- NOTE | 2020-04-23 13:48 | ER ---
Nurse's Notes [facility] Name: Juancarlos Oneal Age: 29 yrs Sex: Male : 1990 Arrival Date: 04/23/2020 Time: 11:23 Bed 20 Private MD: Diagnosis: Diarrhea, unspecified Presentation: 04/23 11:37 Chief complaint: Patient states: Nausea and diarrhea since 0200 today. Took ca1 anti-diarrheal medication, no relief. Denies fever. Coronavirus screen: Client denies travel out of the [place] in the last 14 days. diarrhea, nausea, Client presents with at least one sign or symptom that may indicate coronavirus-19. Standard/surgical mask placed on the client. Provider contacted for isolation considerations. The client reports previous COVID testing was negative. Date of collection: April 11, 2019. Ebola Screen: Patient negative for fever greater than or equal to 101.5 degrees Fahrenheit, and additional compatible Ebola Virus Disease symptoms Patient denies exposure to infectious person. Patient denies travel to an Ebola-affected area in the 21 days before illness onset. No symptoms or risks identified at this time. Initial Sepsis Screen: Does the patient meet any 2 criteria? No. Patient's initial sepsis screen is negative. Does the patient have a suspected source of infection? No. Patient's initial sepsis screen is negative. Risk Assessment: Do you want to hurt yourself or someone else? Patient reports no desire to harm self or others. Onset of symptoms was April 23, 2020 at 02:00. 11:37 Method Of Arrival: Ambulatory ca1 11:37 Acuity: SUNIL 3 ca1 Triage Assessment: 11:45 General: Appears in no apparent distress. uncomfortable, Behavior is cooperative, bp appropriate for age, anxious. Pain: Denies pain. EENT: No deficits noted. Neuro: No deficits noted. Cardiovascular: No deficits noted. Respiratory: No deficits noted. GI: Abdomen is non-distended, Reports diarrhea, nausea. : No signs and/or symptoms were reported regarding the genitourinary system. Derm: No deficits noted. Musculoskeletal: No deficits noted. Historical: - Allergies: 11:39 No Known Allergies; ca1 - Home Meds: 11:39 None [Active]; ca1 - PMHx: 11:39 Asthma; ca1 - PSHx: 11:39 None; ca1 - Immunization history:: Adult Immunizations up to date. - Social history:: Smoking status: Patient denies any tobacco usage or history of. Screenin:45 Abuse screen: Denies threats or abuse. Denies injuries from another. Nutritional bp screening: No deficits noted. Tuberculosis screening: No symptoms or risk factors identified. Fall Risk None identified. Assessment: 11:45 General: SEE TRIAGE NOTE. bp 13:26 Reassessment: Patient appears in no apparent distress at this time. No changes from bp previously documented assessment. Patient and/or family updated on plan of care and expected duration. Pain level reassessed. Patient is alert, oriented x 3, equal unlabored respirations, skin warm/dry/pink. ALL CURRENT ORDERS COMPLETED, IV IN PLACE AND INFUSING. Vital Signs: 11:37 BP 116 / 62; Pulse 83; Resp 16 S; Temp 98.8(O); Pulse Ox 98% on R/A; Weight 167.83 kg ca1 (R); Height 5 ft. 7 in. (170.18 cm) (R); Pain 6/10; 13:25 BP 109 / 81; Pulse 81; Resp 17; Pulse Ox 100% ; bp 11:37 Body Mass Index 57.95 (167.83 kg, 170.18 cm) ca1 ED Course: 11:23 Patient arrived in ED. as 11:30 Bernard Bass PA is PHCP. [facility] 11:30 Jessee Peraza MD is Attending Physician. jm 11:37 Jose Angel Griggs, ANDRES is Primary Nurse. bp 11:38 Triage completed. ca1 11:39 Arm band placed on right wrist. ca1 11:45 Patient has correct armband on for positive identification. Bed in low position. Call bp light in reach. Side rails up X2. 11:45 Inserted saline lock: 22 gauge in left antecubital area, using aseptic technique. bp 14:11 No provider procedures requiring assistance completed. IV discontinued, intact, iw bleeding controlled, No redness/swelling at site. Pressure dressing applied. Administered Medications: 12:15 Drug: NS 0.9% 1000 ml Route: IV; Rate: 1 bolus; Site: left antecubital; bp 14:12 Follow up: IV Status: Completed infusion iw Outcome: 13:48 Discharge ordered by . jmm 14:11 Discharged to home ambulatory. iw 14:11 Condition: good 14:11 Discharge instructions given to patient, Instructed on discharge instructions, follow up and referral plans. Demonstrated understanding of instructions, follow-up care. 14:12 Patient left the ED. iw Signatures: Bernard Bass PA PA jmm Martinez, Amelia as Williams, Irene, RN RN Jose Angel Alberto RN RN bp Erin Atkinson RN RN ca1
--- NOTE | 2020-04-23 13:48 | EDPHYS ---
Physician Documentation [facility] Name: Juancarlos Oneal Age: 29 yrs Sex: Male : 1990 Arrival Date: 04/23/2020 Time: 11:23 Bed 20 Private MD: ED Physician Jessee Peraza HPI: 04/23 12:27 This 29 yrs old Male presents to ER via Ambulatory with complaints of jmm Diarrhea, Nausea. 12:27 The patient presents to the emergency department with nausea, diarrhea. Onset: The jmm symptoms/episode began/occurred acutely, last night. Possible causes: unknown. The symptoms are aggravated by food , The symptoms are alleviated by nothing. Associated signs and symptoms: Pertinent positives: flatulence, Pertinent negatives: abdominal pain, fever, vomiting. The patient has not experienced similar symptoms in the past. Historical: - Allergies: 11:39 No Known Allergies; ca1 - Home Meds: 11:39 None [Active]; ca1 - PMHx: 11:39 Asthma; ca1 - PSHx: 11:39 None; ca1 - Immunization history:: Adult Immunizations up to date. - Social history:: Smoking status: Patient denies any tobacco usage or history of. ROS: 12:27 Constitutional: Negative for fever, chills, and weight loss, Cardiovascular: Negative jmm for chest pain, palpitations, and edema, Respiratory: Negative for shortness of breath, cough, wheezing, and pleuritic chest pain. 12:27 Abdomen/GI: Positive for diarrhea. 12:27 All other systems are negative. Exam: 12:27 Constitutional: This is a well developed, well nourished patient who is awake, alert, jmm and in no acute distress. Head/Face: atraumatic. Eyes: EOMI, no conjunctival erythema appreciated ENT: Moist Mucus Membranes Neck: Trachea midline, Supple Chest/axilla: Normal chest wall appearance and motion. Cardiovascular: Regular rate and rhythm. No edema appreciated Respiratory: Normal respirations, no respiratory distress appreciated 12:27 Back: Normal ROM Skin: General appearance color normal MS/ Extremity: Moves all extremities, no obvious deformities appreciated, no edema noted to the lower extremities Neuro: Awake and alert, normal gait Psych: Behavior is normal, Mood is normal, Patient is cooperative and pleasant 12:27 Abdomen/GI: Inspection: abdomen appears normal, Bowel sounds: normal, Palpation: soft, nontender, in all quadrants. Vital Signs: 11:37 BP 116 / 62; Pulse 83; Resp 16 S; Temp 98.8(O); Pulse Ox 98% on R/A; Weight 167.83 kg ca1 (R); Height 5 ft. 7 in. (170.18 cm) (R); Pain 6/10; 13:25 BP 109 / 81; Pulse 81; Resp 17; Pulse Ox 100% ; bp 11:37 Body Mass Index 57.95 (167.83 kg, 170.18 cm) ca1 MDM: 11:51 Patient medically screened. [facility] 13:45 Data reviewed: vital signs, nurses notes. Counseling: I had a detailed discussion with [facility] the patient and/or guardian regarding: the historical points, exam findings, and any diagnostic results supporting the discharge/admit diagnosis, lab results, the need for outpatient follow up, to return to the emergency department if symptoms worsen or persist or if there are any questions or concerns that arise at home. ED course: Patient is alert and non toxic in appearance in the ED. No signs of resp distress. Patient advised to follow up with pcp and otherwise given strict return precautions. Patient understood and agrees with the plan of care. . 04/23 12:05 Order name: Basic Metabolic Panel; Complete Time: 13:09 [facility] 04/23 12:05 Order name: CBC with Diff; Complete Time: 13:09 [facility] 04/23 12:05 Order name: Hepatic Function; Complete Time: 13:09 [facility] 04/23 12:05 Order name: Lipase; Complete Time: 13:09 [facility] 04/23 12:05 Order name: IV Saline Lock; Complete Time: 12:35 [facility] 04/23 12:05 Order name: Labs collected and sent; Complete Time: 12:35 [facility] 04/23 13:40 Order name: COVID-19/FLU A+B; Complete Time: 13:45 EDMS Administered Medications: 12:15 Drug: NS 0.9% 1000 ml Route: IV; Rate: 1 bolus; Site: left antecubital; bp 14:12 Follow up: IV Status: Completed infusion iw Disposition: 04/24 05:47 Co-signature as Attending Physician, Jessee Peraza MD I agree with the assessment and kdr plan of care. Disposition: 04/23/20 13:48 Discharged to Home. Impression: Diarrhea, unspecified. - Condition is Stable. - Discharge Instructions: Food Choices to Help Relieve Diarrhea, Adult, Diarrhea, Adult. - Work release form, Medication Reconciliation Form, Thank You Letter, Antibiotic Education, Prescription Opioid Use form. - Follow up: Private Physician; When: 2 - 3 days; Reason: Recheck today's complaints, Continuance of care, Re-evaluation by your physician. Signatures: Dispatcher [employer] [facility] Jessee Peraza MD MD kdr Mickail, Joel, PA PA jmm Williams, Irene, RN RN iw Jose Angel Griggs, RN RN bp Erin Atkinson RN RN ca1 Corrections: (The following items were deleted from the chart) 04/23 12:46 12:05 CORONAVIRUS+MR.LAB.BRZ ordered. [facility] 12:47 12:05 Influenza Screen (A \T\ B)+BA.LAB.BRZ ordered. [facility] 14:12 13:48 04/23/2020 13:48 Discharged to Home. Impression: Diarrhea, unspecified. Condition iw is Stable. Forms are Medication Reconciliation Form, Thank You Letter, Antibiotic Education, Prescription Opioid Use. Follow up: Private Physician; When: 2 - 3 days; Reason: Recheck today's complaints, Continuance of care, Re-evaluation by your physician. [place]
[2020-04-23 14:16] VITALS: TEMP 98.8
[2020-04-23 14:17] VITALS: BP 109/81; O2SAT 100
== END 2020-04-23 14:12 | disposition home or self-care (01) ==
LOC: ER 11:20
DX: R19.7 Diarrhea, unspecified (principal); Z20.822 Contact with and (suspected) exposure to COVID-19
CPT/HCPCS: 0240U; 36415; 80048; 80076; 83690; 85025; 96360; 96361; 99283; J7030